=== PATIENT | female | born 1970 | race Caucasian/White ===

== ENCOUNTER 2018-12-23 16:22 | Emergency (ER) | payer MEDICAID, OTHER ==
[2018-12-23 16:25] VITALS: TEMP 98; O2SAT 100
--- NOTE | 2018-12-23 17:33 | RAD ---
Date of service: 12/23/2018 PROCEDURE: Right Index finger radiographs. HISTORY: pain twisted it COMPARISON: None. TECHNIQUE: AP radiograph of the right hand, as well as spot oblique and lateral images of index finger were obtained. FINDINGS: RIGHT INDEX FINGER: Normal right index finger, without fracture or focal lesion. Remainder of the right hand (as seen on the AP view) grossly intact. JOINTS: Normal. SOFT TISSUES: Normal. OTHER FINDINGS: None. IMPRESSION: No evidence of acute fracture or dislocation.
--- NOTE | 2018-12-23 17:34 | RAD ---
Date of service: 12/23/2018 PROCEDURE: Left Foot Radiographs. HISTORY: dorsum foot pain tewisted foot COMPARISON: None. FINDINGS: BONES: No evidence of acute fracture. There is a small calcaneus spur noted. JOINTS: Normal. SOFT TISSUES: Normal. OTHER FINDINGS: None. IMPRESSION: Evidence of acute fracture or dislocation.
--- NOTE | 2018-12-23 17:55 | C.PDOC ---
History Of Present Illness 48 y/o female comes in to ED complaining of pain to her right index finger and left foot after she slipped on something oily while in [employer] earlier today. Patient fell backwards, injuring her right index finger and twisting her left foot. Patient denies any head injury, LOC, back pain, or other complaints. Time Seen by Provider: 12/23/18 16:33 Chief Complaint (Nursing): Lower Extremity Problem/Injury History Per: Patient History/Exam Limitations: no limitations Onset/Duration Of Symptoms: Hrs Current Symptoms Are (Timing): Still Present Past Medical History Reviewed: Historical Data, Nursing Documentation, Vital Signs Vital Signs: Last Vital Signs Temp 98.0 F 12/23/18 16:24 Pulse 76 12/23/18 16:24 Resp 18 12/23/18 16:24 BP 137/95 H 12/23/18 16:24 Pulse Ox 100 12/23/18 16:24 - Medical History PMH: Hypercholesterolemia Family History: States: No Known Family Hx - Social History Hx Alcohol Use: No Hx Substance Use: No - Immunization History Hx Tetanus Toxoid Vaccination: No Hx Influenza Vaccination: No Hx Pneumococcal Vaccination: No Review Of Systems Constitutional: Negative for: Fever, Chills Musculoskeletal: Positive for: Foot Pain (Left), Other (Right index finger pain). Negative for: Back Pain Neurological: Negative for: Other (LOC) Physical Exam - Physical Exam Appears: Non-toxic, No Acute Distress Skin: Warm, Dry Head: Atraumatic, Normacephalic Eye(s): bilateral: Normal Inspection Oral Mucosa: Moist Neck: Supple Cardiovascular: Rhythm Regular, No Murmur Respiratory: Normal Breath Sounds, No Rales, No Rhonchi, No Wheezing Gastrointestinal/Abdominal: Soft, No Tenderness Extremity: Normal ROM (full ROM of all digits), Tenderness (mild tenderness and swelling to right index finger), Capillary Refill (less than 2 seconds), Other (full ROM of ankle, nontender, no swelling) Extremity: Bilateral: Normal Color And Temperature Pulses: Right Radial: Normal Neurological/Psych: Oriented x3, Normal Speech, Normal Sensation ED Course And Treatment O2 Sat by Pulse Oximetry: 100 (RA) Pulse Ox Interpretation: Normal - Other Rad Right Hand XR X-Ray: Read By Radiologist Interpretation: FINDINGS: RIGHT INDEX FINGER: Normal right index finger, without fracture or focal lesion. Remainder of the right hand (as seen on the AP view) grossly intact. JOINTS: Normal. SOFT TISSUES: Normal. OTHER FINDINGS: None. IMPRESSION: No evidence of acute fracture or dislocation. Left Foot XR X-Ray: Read By Radiologist Interpretation: FINDINGS: BONES: No evidence of acute fracture. There is a small calcaneus spur noted. JOINTS: Normal. SOFT TISSUES: Normal. OTHER FINDINGS: None. IMPRESSION: Evidence of acute fracture or dislocation. Medical Decision Making Medical Decision Making: Plan: --Tylenol PO --Right Hand XR --Left Foot XR Disposition Counseled Patient/Family Regarding: Studies Performed, Diagnosis, Need For Followup, Rx Given - Disposition Referrals: [facility] [Outside] Podiatry Clinic [Outside] Disposition: HOME/ ROUTINE Disposition Time: 17:55 Condition: GOOD Additional Instructions: Wear aparna bandage and orthopedic shoe for comfort. Tylenol for pain. Follow up with podiatry in the next week either at [facility] or podiatry clinic in [place]. Instructions: Foot Sprain (DC) Forms: [employer] (Samoan), General Discharge Instructions - Clinical Impression Clinical Impression: Fall from slipping on wet surface, Sprain of left foot, Pain in finger of right hand - PA / QUALIFICATIONS EXAMINER / Resident Statement MD/DO has reviewed & agrees with the documentation as recorded. - Scribe Statement The provider has reviewed the documentation as recorded by the Scribanmol Reddy All medical record entries made by the Scribe were at my direction and personally dictated by me. I have reviewed the chart and agree that the record accurately reflects my personal performance of the history, physical exam, medical decision making, and the department course for this patient. I have also personally directed, reviewed, and agree with the discharge instructions and disposition.
[2018-12-23 18:12] VITALS: BP 111/75; PULSE 71; RESP 16
== END 2018-12-23 18:06 | disposition home or self-care (01) ==
LOC: C.ER 16:22
DX: M79.644 Pain in right finger(s) (principal); S93.602A Unspecified sprain of left foot, initial encounter; W01.0XXA Fall on same level from slipping, tripping and stumbling without subsequent striking against object, initial encounter; E78.00 Pure hypercholesterolemia, unspecified